=== PATIENT | male | born 1990 | race Hispanic/Latino ===

== ENCOUNTER 2024-08-10 18:15 | Emergency (ER) | payer SELFPAY ==
[2024-08-10 18:21] VITALS: BP 130/90
[2024-08-10 20:21] LABS: % Basophils 0.5 % (0-2); % Eosinophils 0.9 % (0-6); % Immature Granulocytes 0.3 % (0-0.5); % Lymphocytes 29.2 % (20.5-51.1); % Monocytes 8.8 % (1.7-9.3); % Neutrophils 60.3 % (42.2-75.2); Absolute Basophils 0.1 10^3/uL (0-0.2); Absolute Eosinophils 0.1 10^3/uL (0-0.7); Absolute Lymphocytes 3.7 10^3/uL (1.2-3.4); Absolute Monocytes 1.1 10^3/uL (0.1-0.6); Absolute Neutrophils 7.6 10^3/uL (1.4-6.5); Hematocrit 40.4 % (39.0-52.0); Hemoglobin 14.6 g/dL (13.0-18.0); Mean Corp Hgb Conc. 36.1 g/dL (33.0-37.0); Mean Corpuscular Hgb 32.1 pg (27.0-31.0); Mean Corpuscular Volume 88.8 fL (80.0-94.0); Mean Platelet Volume 9.4 fL (7.4-10.4); Nucleated Red Blood Cells % 0 % (-); Platelet Count 232 10^3/uL (130-400); Red Blood Cell Count 4.55 10^6/uL (4.70-6.10); Red Cell Dist. Width 12.7 % (11.5-14.5); White Blood Cell Count 12.6 10^3/uL (4.8-10.8)
[2024-08-10 20:45] LABS: Blood Urea Nitrogen 15 mg/dl (9-20); Calcium 8.9 mg/dl (8.4-10.2); Carbon Dioxide 23 mmol/L (22-30); Chloride 107 mmol/L (98-107); Glucose 84 mg/dl (70-99); Sodium 137 mmol/L (135-145); eGFR > 60.00
[2024-08-10 20:49] LABS: Troponin I < 0.012 ng/ml
--- NOTE | 2024-08-10 21:01 | ED.GENMED ---
History of Present Illness
General
Chief Complaint: Chest Pain
Source: patient
Time Seen by Provider: 08/10/24 20:29
History of Present Illness
History of Present Illness:
33-year-old male presents to the emergency room complaining of pain in the anterior chest, shortness of breath. Patient has been experiencing the symptoms for the past 10 days or so. Feels worse in the morning when he first gets up. Does have
some discomfort when he takes a deep breath. Patient has not taken anything for the pain. 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 He does endorse smoking about a pack a day. No fever, chills, cough. Patient states he had
a similar episode about a year ago. Symptoms went away without intervention.
Past History
Past History
ED Past Medical History: None
ED Past Surgical History: None
Social History
Tobacco: Non-smoker
Drug: None
Phy Exam
Physical Exam
Physical Exam:
General: Awake, Alert, Oriented X3. No acute distress.
Vitals: unremarkable
Head: Atraumatic
Eyes: Pupils equal, EOMI
Throat: Airway intact, no exudates
Neck: Trachea midline
Lungs: Clear and equal b/l
Heart: Regular rate, no murmurs
Abd: Soft, Nontender, No pulsatile mass
Neuro: Nonfocal
Skin: Warm, dry, no rash
Extremities: pulses equal b/l, no edema
Scores
Heart Score for Chest Pain Patients
STEMI patient?: No
History: Slightly or Non-Suspicious
ECG: Normal
Age: </= 45 years
Risk Factors: No Risk Factors
Troponin: </= Normal Limit
Heart Score for Chest Pain Patients: 0
Heart Score Risk: 2.5% MACE over next 6 weeks
Course
Orders/Labs/Results
Orders:
Orders
08/10/24 18:16
EKG [Electrocardiogram (*1)] Urgent
Reason for Study: Chest Pain
EKG- Treatment ONCE
08/10/24 19:56
Cardiac Monitoring- Treatment ONCE
IV Insert/Care/Rem.- Treatment PRN
CR Chest - 2 Views Urgent
Comment:
Reason For Exam: respiratory distress
O2 Therapy [RESP] Urgent
Titrate/Wean O2 to maintain O2 sat greater than (%): 93
Special Instructions: TO MAINTAIN CONTINUOUS O2 SATS >/= 93%
Pulse Ox/cont/shift [RESP] Urgent
Quantity: 1
Special Instructions: continuous pulse ox
08/10/24 20:09
Basic Metabolic Panel Urgent
Complete Blood Count/With Diff Urgent
Troponin I Urgent
08/10/24 21:00
Ibuprofen [Motrin] 600 mg PO NOW STA
08/10/24 21:18
D-Dimer Urgent
Abnormal Lab Results
08/10/24
20:09
WBC 12.6 H 10^3/uL
(4.8-10.8)
RBC 4.55 L 10^6/uL
(4.70-6.10)
MCH 32.1 H pg
(27.0-31.0)
Absolute Neuts (auto) 7.6 H 10^3/uL
(1.4-6.5)
Absolute Lymphs (auto) 3.7 H 10^3/uL
(1.2-3.4)
Absolute Monos (auto) 1.1 H 10^3/uL
(0.1-0.6)
08/10/24 20:09
08/10/24 20:09
Vital Signs
Initial and Last Documented VS:
Initial Vital Signs
Temp Pulse Resp BP Pulse Ox
98.9 F 80 18 130/90 98
08/10/24 18:21 08/10/24 18:21 08/10/24 18:21 08/10/24 18:21 08/10/24 18:21
Last Documented Vital Signs
Temp Pulse Resp BP Pulse Ox
98.9 F 52 24 139/75 97
08/10/24 18:21 08/10/24 22:00 08/10/24 22:00 08/10/24 22:00 08/10/24 22:00
MDM/Problems Addressed
Differential Diagnosis Includes:
Angina, pneumothorax, chest wall pain,
MDM/Problems Addressed:
Patient complaining of chest pain. It has been going on for days. Symptoms worse in the morning. Workup. Reveals no evidence for an acute unstable process. Chest x-ray shows no acute abnormalities. EKG shows no acute ischemic changes.
Troponin is normal. Patient stable for outpatient follow-up with his primary care provider but given patient's age, occupation I think this is very likely costochondritis.
*Radiology
Radiology exam reviewed: preliminary read by ED provider (No acute abnormalities noted on my review of the patient's chest x-ray)
*Pulse Oximetry
SaO2: 98
Oxygen Mode of Delivery: Room air
Patient hypoxic: no
*EKG
Interpreted by ED Provider?: Yes
Interpretation: normal
Heart Rate: 64
Rate: normal
Rhythm: sinus
Norris: normal axis
Interval: normal interval
QRS Pattern: normal QRS
Ischemia: no ischemia
*Rotary Adjuster Interpretation
Rate: normal
Interpretation: normal
Rhythm: sinus
*Critical Care Note
Total Time (30-74mins, 75-104mins- exclusive of procedures): Not Applicable
ED Attending Note
-
Portions of this chart may have been created with voice recognition software.� Occasional wrong word or��sound alike� substitutions may have occurred due to the inherent limitations of voice recognition software.
Discharge Plan
Departure
Patient Disposition: Home (Routine Discharge)
Date of Disposition: 08/10/24
Time of Disposition: 21:52
Patient with high blood pressure during this ER visit?: No
Condition: Good
Discharge Problem:
Chest pain, Acute costochondritis
Instructions: Chest Pain (DC), Costochondritis (DC)
Prescriptions:
No Action
pantoprazole 40 MG tablet,delayed release (DR/EC)
40 mg PO DAILY Qty: 15 0RF
Referrals:
UNKNOWN - PT DOES,NOT KNOW [Family Provider]
Activity Restrictions/Additional Instructions:
I believe your chest discomfort is from irritation of the joints of your chest. Particularly with the ribs make the breastbone. I recommend taking ibuprofen 400 mg every 6 hours as needed for pain. Follow-up with your primary care provider.
Return if you feel like you are getting worse.
Interventions
Interventions:
*Risk Screen - Suicide Last Done: 08/10/24 18:21
*General Assessment Last Done: 08/10/24 18:21
*Neglect/Abuse Screening Last Done: 08/10/24 22:31
*ED- Fall Risk Assessment Last Done: 08/10/24 18:21
*ED COVID-19 Vaccine History Last Done: 08/10/24 18:21
*Nursing Disposition Last Done: 08/10/24 22:31
ED- Cardiac Assessment Last Done: 08/10/24 21:30
ED- Pulmonary Assessment Last Done: 08/10/24 21:30
Discharge Date and Time
Discharge Date/Time: 08/10/24 22:31
Print Language: [id number]
[2024-08-10] MEDS: MOTRIN 600 MG PO (21:15)
[2024-08-10 21:17] VITALS: BMI 32.1
[2024-08-10 21:19] VITALS: BP 147/87
[2024-08-10 21:39] LABS: D-Dimer < 0.27 ug/mlFEU (0.00-0.50)
[2024-08-10 22:00] VITALS: BP 139/75
== END 2024-08-10 22:31 | disposition home or self-care (01) ==
LOC: EMR 18:15
PROVIDERS: EMERGENCY PHYSICIAN Emergency Medicine
DX: M94.0 Chondrocostal junction syndrome [Tietze] (principal); F17.200 Nicotine dependence, unspecified, uncomplicated
CPT/HCPCS: 99285; 71046; 80048; 84484; 85025; 85379; 93005